=== PATIENT | female | born 1950 | race African-American/Black ===

== ENCOUNTER → 2021-05-23 | Outpatient (CLI) | payer OTHER, MEDICAID ==
--- NOTE | 2021-05-23 10:17 | RAD ---
CT [facility]ORAX WO History: Short of air. Comparison: None. Technique: Noncontrast CT of the chest. Findings: Assessment is limited by lack of IV contrast. Cardiovascular: Minimal calcification of the aortic arch. No aortic aneurysm. The pulmonary trunk is at the upper limits of normal, 2.7 cm diameter. Mild coronary artery calcification. Heart size is nor mal. No pericardial effusion. Mediastinum and cary: No adenopathy. Airways, lungs and pleura: The airways are clear. No bronchial wall thickening. No significant emphys ematous disease. Bilateral mild peripheral reticular and groundglass opacities with slight upper lobe predominance. 4 mm fissural nodule left lung likely normal fissural lymph node. Upper abdomen: Limited evaluation of the upper abdomen is unremarkable. Osseous structures and soft tissues: Within normal limits for age. Impression: 1. Bilateral peripheral reticular and groundglass opacities may represent sequela of resolving infec tious process such as Covid 19. Chronic fibrotic scarring can be seen in this disease process. Other causes of interstitial lung disease are not excluded. ------ Exposure: One or more of the following individualized dose reduction techniques were utilized for thi s examination: 1. Automated exposure control 2. Adjustment of the mA and/or kV according to patient size 3. Use of iterative reconstruction technique. Electronically signed by: Oswaldo Aleman MD (05/23/2021 10:14 AM) [facility]
== END ==
LOC: CT 09:14
PROVIDERS: ATTEND Internal Medicine Pulmonary Disease
DX: I25.10 Atherosclerotic heart disease of native coronary artery without angina pectoris (principal); R91.1 Solitary pulmonary nodule; I70.0 Atherosclerosis of aorta
CPT/HCPCS: 71250